=== PATIENT | female | born 1970 | race Two or more races ===

== ENCOUNTER 2020-07-14 22:58 | Emergency (ER) | payer MEDICAID ==
[~2020-07-14] VITALS: Ht 162.6 cm; Wt 110.0 kg
[2020-07-15 00:50] LABS: BASOPHILS % 1.1 % (0.0-2.0); EOSINOPHILS % 0.4 % (0.0-5.0); HEMATOCRIT. 37.3 % (36.0-48.0); HEMOGLOBIN. 12.7 g/dL (12.0-16.0); LYMPHOCYTES % 25.6 % (20.0-50.0); MEAN CORPUSCULAR HEMOGLOBIN 31.8 pg (28.0-32.0); MEAN CORPUSCULAR VOLUME 93.3 fL (81.0-99.0); MEAN PLATELET VOLUME 10.3 fl (7.4-10.4); MONOCYTES % 8.1 % (2.0-8.0); NEUTROPHILS % 64.8 % (40.0-76.0); PLATELET 286 x1000/uL (130-400); RED CELL DISTRIBUTION WIDTH 13.3 % (11.6-14.6)
[2020-07-15 01:00] LABS: CHLORIDE 102 mEq/L (98-107)
[2020-07-15 01:03] LABS: ETHANOL BLOOD < 10 mg/dL
[2020-07-15] MEDS ORDERED: SODIUM CHLORIDE 0.9% 1,000 ML IV ONE ×2 (02:45)
[2020-07-15 12:00] VITALS: BP 116/98
== END 2020-07-15 12:10 | disposition home or self-care (01) ==
LOC: ER 22:58
DX: Z00.00 Encounter for general adult medical examination without abnormal findings (principal); E87.6 Hypokalemia; F20.9 Schizophrenia, unspecified; E11.9 Type 2 diabetes mellitus without complications; I10 Essential (primary) hypertension; Z98.890 Other specified postprocedural states
CPT/HCPCS: 36415; 70450; 80053; 80307; 80320; 80329; 85025; 93005; 99285; J7030; G0480